=== PATIENT | male | born 2000 | race Caucasian/White ===

== ENCOUNTER 2021-12-15 18:29 | Emergency (ER) | payer OTHER, SELFPAY ==
[2021-12-15 18:44] VITALS: BP 118/73; PULSE 78; RESP 18; TEMP 36.7; O2SAT 100; BMI 29.8
--- NOTE | 2021-12-15 18:55 | CRLHL7_ITS ---
For Patients: As a result of the Century Cures Act, medical imaging exams and procedure reports are released immediately into your electronic medical record. You may view this report before your referring provider. If you have questions, please contact your health care provider. DATE: 12/15/2021. CLINICAL HISTORY: Head trauma. TECHNIQUE: Standard helical CT image acquisition of the brain was performed. COMPARISON: None available. FINDINGS: There is no intracranial hemorrhage. No extra-axial collection, mass effect, or midline shift. Carr-white matter differentiation is preserved. The ventricles are normal in size and morphology for patient age. No displaced calvarial fracture. The orbits are unremarkable. The paranasal sinuses are unremarkable. The mastoid air cells are unremarkable. IMPRESSION: No CT evidence of acute intracranial abnormality or closed-head injury. Please note that all CT scans at this facility use dose modulation, iterative reconstruction, and/or weight-based dosing when appropriate to reduce radiation dose to as low as reasonably achievable. Dictated by Zion Matute MD @ 12/15/2021 7:54:55 PM (Electronically Signed)
--- NOTE | 2021-12-15 18:56 | ED_ITS ---
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 He has an abrasion on the top of his head he be a headache this happened about 3 or 4 hours ago. It was at work as mention. He denies any neck pain or back pain, no focal neurologic deficits in upper lower extremities no new neck back chest abdominal pelvic or upper lower extremity symptoms really describes a head ache and he has had not had nausea he did not lose consciousness. Related Data Home Medications Medication Instructions Recorded Confirmed No Known Home Medications 12/15/21 12/15/21 Allergies Allergy/AdvReac Type Severity Reaction Status Date / Time No Known Drug Allergies Allergy Verified 12/15/21 18:48 Review of Systems Status of ROS: Reports: 6 or more systems reviewed and unremarkable except as noted in History and below [facility] Social History Smoking Status: Never smoker How often do you have a drink containing alcohol: never AUDIT-C Alcohol total score: 0 Non-prescribed substance use: denies use Exam Narrative: Exam Narrative: Objective: Patient has abrasion on the top of his head no palpable stop step- off there is soft tissue swelling in his frontal parietal area anteriorly and over the top of his vertex of his scalp HEENT otherwise unremarkable, pupils react to light, neck is supple for range of motion without tenderness no palpable tenderness to his neck back chest abdomen upper lower extremities are unremarkable. He has am he is ambulatory without difficulty. Const: Vital Signs, click to edit/add: Vital Signs - 24 hr 12/15/21 18:44 Temperature 98.1 F Pulse Rate [Pulse Oximeter] 78 Respiratory Rate 18 Blood Pressure [Ri ght Upper Arm] 118/73 Pulse Oximetry 100 Course Vital Signs Vital signs: Initial Vital Signs Temperature 98.1 F 12/15/21 18:44 Temperature Source Temporal Artery Scan 12/15/21 18:44 Pulse Rate 78 12/15/21 18:44 Respiratory Rate 18 12/15/21 18:44 Blood Pressure 118/73 12/15/21 18:44 Blood Pressure Mean 88 12/15/21 18:44 Blood Pressure Position Sitting 12/15/21 18:44 Pulse Oximetry 100 12/15/21 18:44 Vital Signs Temperature 98.1 F 12/15/21 18:44 Pulse Rate 78 12/15/21 18:44 Respiratory Rate 18 12/15/21 18:44 Blood Pressure 118/73 12/15/21 18:44 Pulse Oximetry 100 12/15/21 18:44 Temperature 98.1 F 12/15/21 18:44 Pulse Rate 78 12/15/21 18:44 Respiratory Rate 18 12/15/21 18:44 Blood Pressure 118/73 12/15/21 18:44 Pulse Oximetry 100 12/15/21 18:44 Medical Decision Making MDM Narrative Medical decision making narrative: Because of his persistent headache and significance of his headache, and the fact that the was thrown up into the roof of the vehicle, would recommend a CT of his head, his neck is fully mobile and nontender. No focal neurologic deficit I think at this point however a CT of his head would be appropriate. This was approved by him in his mother. Addendum: The patient's head CT scan is negative. At this point however would recommend rest for few days, up follow up with regular doctor in 3 days, light activity, Tylenol as needed bacitracin to the abrasion, return problems or concerns sooner than his followup. Would recommend off work for 3 days Discharge Plan Discharge Clinical Impression: Closed head injury Patient Disposition: Home w/ Parent or Adult Condition: Stable Additional Instructions: Off work for 3 days, follow up with regular doctor at that time Tylenol as needed for discomfort, bacitracin to the abrasion on the scalp, return if problems or concerns sooner to the ED Activity Level: Light activity Activity Detail: Off work for 3 days, avoid excessive screen time to give the brain some rest time Discharge Diet: Regular Prescriptions: No Action No Known Home Medications Stand Alone Forms: [employer] Info Instructions
[2021-12-15] MEDS: ACETAMINOPHEN 500 MG TABLET 1000 MG PO (19:43)
[2021-12-15] MEDS: HYDROCODONE/ACETAMIN 7.5-325 TABLET 1 TAB PO (20:14)
[2021-12-15 20:23] VITALS: BP 118/73; PULSE 78; RESP 18; TEMP 36.7
== END 2021-12-15 20:23 | disposition home or self-care (01) ==
PROVIDERS: Emergency Provider Family Medicine
DX: S09.90XA Unspecified injury of head, initial encounter (principal); W22.8XXA Striking against or struck by other objects, initial encounter; Y93.89 Activity, other specified; Y92.69 Other specified industrial and construction area as the place of occurrence of the external cause; Y99.0 Civilian activity done for income or pay
CPT/HCPCS: 70450; 99284; A9270

== ENCOUNTER 2023-11-13 07:21 | Emergency (ER) | payer BC, SELFPAY ==
[2023-11-13 07:55] VITALS: BP 131/72; PULSE 79; RESP 18; TEMP 37.1; O2SAT 99; BMI 34.0
--- NOTE | 2023-11-13 08:28 | ED_ITS ---
HPI - General Adult General Date Seen: 11/13/23 Chief complaint: Ear/Nose/Throat Problem Stated complaint: Unable to see out of left eye Time Seen by Provider: 11/13/23 08:23 History of Present Illness HPI narrative: 22 yo M with a history of strep pharyngitis, presenting to the ER today with concern for visual disturbance in his left eye. Per medical record he was seen in the urgent care 3 days ago on 11/09. At that time he had nasal congestion, cough, sore throat ongoing for 2-3 days. Pain with swallowing. White spots in the back of his throat. He had a strep swab that was negative. Influenza PCR was negative. COVID test not performed based on patient and provided preference. Patient says initially symptoms started with nasal congestion and sore throat. He did not have any fever. Since he was in the urgent care his cause gotten worse. It is nonproductive but sometimes when he coughs it makes his head and face hurt. He did take some Tylenol last night. He woke up this morning with worsening pain in the left side of his face, in particular his left cheek. He also had a nosebleed mostly from his left nostril that was controlled by squeezing at home. No other unusual bleeding or bruising. He has noted some occasional blurriness in the vision of his left eye this morning. His triage note says that he is unable to see out of his left eye, but that was actually not correct. He was never blind and never had a visual field loss. Just that with the left facial pain he had some occasional blurriness. He has not had any redness of his eye. No swelling of his eyelids. No right eye symptoms. He works in the [employer] industry. He tried to go to work this morning but was feeling too unwell so had to call in sick with his boss. He told his boss he would come here to the ER. Related Data Home Medications ?Medication ?Instructions ?Recorded ?Confirmed methylphenidate HCl 18 mg 18 mg PO DAILY 11/10/23 11/10/23 tablet,extended release 24 hr Previous Rx's ?Medication ?Instructions ?Recorded prednisone 20 mg tablet 40 mg (2 x 20 mg) PO QDAY 5 days 11/10/23 #10 tabs amoxicillin 875 mg-potassium 1 tab PO BID #14 tabs 11/13/23 clavulanate 125 mg tablet Allergies Allergy/AdvReac Type Severity Reaction Status Date / Time No Known Drug Allergies Allergy Verified 11/10/23 14:28 [facility] Social History Smoking Status: Never smoker How often do you have a drink containing alcohol: never AUDIT-C Alcohol total score: 0 Non-prescribed substance use: denies use Exam Narrative: Exam Narrative: Constitutional: Appears well-developed and well-nourished. Alert. Conversant. Looks like he does not feel well, but overall Non toxic. HENT: Head: Atraumatic. Nose: External nose normal. He does have puffiness and edema of his nasal mucosa. No active epistaxis. He has a small area of dry blood /scab on the septum inside his left nares which is probably the site of his recent epistaxis. No active bleeding. Frontal sinus is nontender. Left maxillary sinuses tender to percussion. Mouth/Throat: Oral mucosa is clear and moist. no trismus. Pharynx normal. Tonsils symmetric. No tonsillar enlargement, erythema, or exudate. Eyes: No exophthalmos or enophthalmos. Conjunctivae normal. EOM normal. Pupils equal, round, and reactive to light. No scleral icterus. No purulent drainage. Lids normal. Right eye visual acuity 20/25. Left eye visual acuity 20/30 Neck: Normal range of motion. Neck supple. No tracheal deviation present. Cardiovascular: Normal rate, regular rhythm. No gallop. No friction rub. No murmur heard. Pulmonary/Chest: Effort normal. No stridor. No respiratory distress. No wheezes. No rales. No rhonchi . Musculoskeletal: RUE: Normal range of motion. No tenderness. No deformity LUE: Normal range of motion. No tenderness. No deformity RLE: Normal range of motion. No edema. No tenderness. No deformity LLE: Normal range of motion. No edema. No tenderness. No deformity Lymph: No cervical adenopathy. Neurological: Alert and oriented to person, place, and time. Normal strength. CN II-VII intact. No sensory deficit. GCS eye subscore is 4. GCS verbal subscore is 5. GCS motor subscore is 6. Normal coordination Skin: Skin is warm and dry. No rash noted. No pallor. Normal capillary refill. Psychiatric: Normal mood. Normal affect. Const: Vital Signs, click to edit/add: Vital Signs - 24 hr 11/13/23 07:55 Temperature 98.8 F Pulse Rate [Pulse Oximeter] 79 Respiratory Rate 18 Blood Pressure [Ri ght Upper Arm] 131/72 Pulse Oximetry 99 Oxygen Delivery Me thod Room Air Course Vital Signs Vital signs: Initial Vital Signs Temperature 98.8 F 11/13/23 07:55 Temperature Source Temporal Artery Scan 11/13/23 07:55 Pulse Rate 79 11/13/23 07:55 Respiratory Rate 18 11/13/23 07:55 Blood Pressure 131/72 11/13/23 07:55 Blood Pressure Mean 91 11/13/23 07:55 Pulse Oximetry 99 11/13/23 07:55 Oxygen Delivery Method Room Air 11/13/23 07:55 Vital Signs Temperature 98.8 F 11/13/23 07:55 Pulse Rate 79 11/13/23 07:55 Respiratory Rate 18 11/13/23 07:55 Blood Pressure 131/72 11/13/23 07:55 Pulse Oximetry 99 11/13/23 07:55 Oxygen Delivery Method Room Air 11/13/23 07:55 Temperature 98.8 F 11/13/23 07:55 Pulse Rate 79 11/13/23 07:55 Respiratory Rate 18 11/13/23 07:55 Blood Pressure 131/72 11/13/23 07:55 Pulse Oximetry 99 11/13/23 07:55 Oxygen Delivery Method Room Air 11/13/23 07:55 Medications Administered Medications: Discontinued Medications Generic Name Dose Route Start Last Admin Trade Name Tyrese PRN Reason Stop Dose Admin Ibuprofen 600 mg 11/13/23 09:00 11/13/23 09:05 Ibuprofen 200 Mg Tablet PO 11/13/23 09:01 600 mg ONCE ONE Administration Oxymetazoline HCl 1 spray 11/13/23 08:58 11/13/23 09:06 Oxymetazoline 0.05% Nasal Lequire NOSTRIL-B 11/13/23 08:59 1 spray ONCE ONE Administration Medical Decision Making [facility] Narrative Medical decision making narrative: This patient presented with signs and symptoms of probable URI and possible sinusitis. Based on history and exam, I feel the cause of sinusitis is more likely bacterial. Antibiotics are indicated due to acute worsening of symptoms. He had been sick with fairly mild symptoms for 5 days and then worsened overnight into this morning with left facial pain. He reports some intermittent blurriness of his left eye. At this point no signs of orbital cellulitis or other acute intracranial extension. I do not think he needs CT orbits, CT head, or MRI. Evaluation today did not show signs of intracranial complication of sinusitis, facial cellulitis or fungal sinusitis. Patient has normal mental status, no proptosis, periorbital edema, CN palsy. No immunosuprression. In terms of the his epistaxis I think this was probably related to the inflammation of his nasal mucosa. Bleeding was self-limited at home. I do not think he needs a coagulopathy workup. Lungs are clear. No evidence for pneumonia. I do not think chest x-ray is indicated. Consider viral cause of his symptoms as well. This likely started as a viral URI. He was tested for influenza in urgent care 2 days ago so would not retest for that. Discussed with the patient possible COVID testing. He will be outside the window for any treatment with Paxlovid. Therefore will hold off on COVID testing. The patient was given instructions to follow up with primary care in 3-5 days. Instructions for symptomatic care were given. Discharge Plan Discharge Clinical Impression: Sinusitis Patient Disposition: Home, Self-Care Condition: Stable Instructions: Sinusitis (ED) Additional Instructions: As we discussed, continue using Tylenol 1000 mg per dose every 6 hours as needed or ibuprofen 600 mg per dose every 6 hours as needed for your pain. Use the Afrin nasal spray (1 spray into each nostril) twice daily as needed for the next 2 days. Start the antibiotics treat for possible sinus infection. Be careful the antibiotics because they can cause diarrhea. You should take some probiotics to help prevent this. If you have worsening symptoms such as high fever, worsening or severe pain in your face, worsening vision in your eye, or any problems, return to the ER immediately for recheck Prescriptions: New amoxicillin-pot clavulanate 875-125 mg tablet 1 tab PO BID Qty: 14 0RF No Action methylphenidate HCl 18 mg tablet extended release 24hr 18 mg PO DAILY prednisone 20 mg tablet 40 mg PO QDAY 5 Days Qty: 10 0RF Follow Up/Referrals: Provider,Not a Local [Non-Staff] - Stand Alone Forms: [employer] Info Instructions
--- NOTE | 2023-11-13 08:57 | ED.NURSE ---
Vision test performed, left eye is 20/30 +2. Right eye is 20/25+3. MD notified.
[2023-11-13] MEDS: IBUPROFEN 200 MG TABLET 600 MG PO (09:05)
[2023-11-13] MEDS: OXYMETAZOLINE 0.05% NASAL SPRAY 1 SPRAY NOSTRIL-B (09:06)
== END 2023-11-13 09:12 | disposition home or self-care (01) ==
LOC: ED 09:04
PROVIDERS: Emergency Provider Emergency Medicine; PCP Family Medicine
DX: J32.0 Chronic maxillary sinusitis (principal)
CPT/HCPCS: 99282; 99283; A9270

== ENCOUNTER 2023-11-29 19:31 | Outpatient (CLI) | payer BC, SELFPAY | END 2023-11-29 19:32 | disposition home or self-care (01) | PROVIDERS: PCP Family Medicine; Visit Provider Nurse Practitioner | DX: R10.32 Left lower quadrant pain (principal); R07.9 Chest pain, unspecified; R11.0 Nausea | CPT/HCPCS: 80053; 83690 ==

== ENCOUNTER 2024-12-29 07:49 | Day surgery (SDC) | payer BC, SELFPAY ==
[2024-12-29] VITALS (17 sets, daily range): BP systolic 116–138; BP diastolic 66–86; PULSE 59–79; RESP 15–17; TEMP 36.3–36.7; O2SAT 93–97; BMI 36.8
[2024-12-29] MEDS: LACTATED RINGERS 1000 ML 1,000 ML 100 ML IV (08:50)
[2024-12-29] MEDS: SODIUM CHLORIDE 0.9 % (FLUSH) 10 ML SYRINGE IVF (08:59)
[2024-12-29] MEDS: BUPIVACAINE 0.5%/EPINEPHRINE 0.9 MG (30.9 ML) INJECTION (10:30)
[2024-12-29] MEDS: AYR SALINE NASAL GEL 1 APPLIC NOSTRIL-B (10:35)
--- NOTE | 2024-12-29 10:58 | W.PM.ENTPROC ---
Procedure Note Date of procedure: 12/29/24 Procedure: Preop diagnosis nasal obstruction, bilateral inferior turbinate hypertrophy, cryptic tonsillitis, chronic tonsillitis, tonsillar hypertrophy Postoperative diagnosis same Procedure tonsillectomy, submucous partial resection inferior turbinates bilateral Under general endotracheal anesthesia patient was prepped and draped usual fashion. The McIvor mouth gag was inserted the tongue retracted forward. There is no significant adenoid tissue noted. The right tonsil was removed with a combination of needlepoint pop cautery as well as the [employer] bipolar cutting device called is active. Bleeding was controlled with suction cautery. This was repeated for the left tonsil in identical fashion. Meticulous hemostasis was achieved After Re gloving attention was turned to the nose the nose was decongested with cocaine pledgets and the inferior turbinate injected. A stab incision was made in the anterior of the right inferior turbinate a tunnel created with a Culebra dissector. The javed bone was outfractured a conservative anterior submucous resection performed. The Coblation was used for hemostasis and to cauterize intramurally along the inferior 10%. This was repeated on the left side in identical fashion. The patient was extubated the operating room taken recovery in satisfactory condition. Blood loss was less than 10 mL. Surgeon: Imer Magallon MD
--- NOTE | 2024-12-29 11:02 | P.ANES_ITS ---
Anesthesia Charges Start Date/Time Anesthesia Start Date: 12/29/24 Anesthesia Start Time: 10:13 Stop Date/Time Anesthesia Stop Date: 12/29/24 Anesthesia Stop Time: 11:03 Coding CPT Codes CPT Codes: ANESTH PROCEDURE ON MOUTH - 18468 ([id number]) P3 - PATIENT W/SEVERE SYS DISEASE, QK - REHAB TRAINER 2-4 CNCRNT ANES PROC, QX - SHELL TRIM OPERATOR SVC W/ MD MED DIRECTION
--- NOTE | 2024-12-29 11:02 | W.ANESCHARGE ---
Anesthesia Charges Start Date/Time Anesthesia Start Date: 12/29/24 Anesthesia Start Time: 10:13 Stop Date/Time Anesthesia Stop Date: 12/29/24 Anesthesia Stop Time: 11:03 Coding CPT Codes CPT Codes: ANESTH PROCEDURE ON MOUTH - 22999 ([id number]) P3 - PATIENT W/SEVERE SYS DISEASE, QK - ACCOUNTING SOFTWARE SPECIALIST 2-4 CNCRNT ANES PROC, QX - TAX ACCOUNTING MANAGER SVC W/ MD MED DIRECTION
--- NOTE | 2024-12-29 11:43 | P.ANES_ITS ---
Anesthesia Charges Start Date/Time Anesthesia Start Date: 12/29/24 Anesthesia Start Time: 10:13 Stop Date/Time Anesthesia Stop Date: 12/29/24 Anesthesia Stop Time: 11:03 Coding CPT Codes CPT Codes: ANESTH PROCEDURE ON MOUTH - 57248 ([id number]) QK - TOWER ERECTOR 2-4 CNCRNT ANES PROC, QX - MATERIAL HANDLER FLOORPERSON SVC W/ MD MED DIRECTION, P3 - PATIENT W/SEVERE SYS DISEASE
--- NOTE | 2024-12-29 11:43 | W.ANESCHARGE ---
Anesthesia Charges Start Date/Time Anesthesia Start Date: 12/29/24 Anesthesia Start Time: 10:13 Stop Date/Time Anesthesia Stop Date: 12/29/24 Anesthesia Stop Time: 11:03 Coding CPT Codes CPT Codes: ANESTH PROCEDURE ON MOUTH - 15850 ([id number]) QK - REGRIND MILL OPERATOR 2-4 CNCRNT ANES PROC, QX - PINSETTER MECHANIC AUTOMATIC SVC W/ MD MED DIRECTION, P3 - PATIENT W/SEVERE SYS DISEASE
[2024-12-29] MEDS: OXYCODONE 1 MG/ML ORAL SOLN 5 MG PO (13:58)
[2024-12-29] MEDS: IBUPROFEN 100 MG/5 ML SUSP 200 MG PO (13:58)
== END 2024-12-29 14:00 | disposition home or self-care (01) ==
LOC: OR 07:50
PROVIDERS: PCP Family Medicine; Visit Provider Otolaryngology
PROC: (CPT 42826; principal; 2024-12-29 09:45)
DX: J35.01 Chronic tonsillitis (principal); J34.3 Hypertrophy of nasal turbinates; J34.89 Other specified disorders of nose and nasal sinuses
CPT/HCPCS: 42826; 30140; 00170; A9270; J0330; J1100; J2250; J2405; J2704; J3010; J7120

== ENCOUNTER 2025-01-05 03:22 | Day surgery (SDC) | payer BC, SELFPAY ==
[2025-01-05] VITALS (24 sets, daily range): BP systolic 115–143; BP diastolic 64–92; PULSE 70–129; RESP 14–20; TEMP 35.7–37.1; O2SAT 94–99; BMI 34.7
--- OUTSIDE RECORDS SUMMARY | 2025-01-05 03:25 | XMS_ITS | Patient Health Record ---
Author Organization [facility] Address [address] [facility] [address] [place] [address] Care Team Providers Care Arcgis Developer Name Role Phone Renee JOHNSTON, Roseline Unavailable Reason For Referral No Information Social History Social History PSA Social History Social Info Question Answer Notes SMOKING STATUS 13Y AND OLDER Are you a: Non-Smoker Education: Is the Child in School? Yes What Grade? 7th Additional Details Category Social Info Options Details PSA Social History Child Lives At: Home Child Lives With: Mother,Other Day Care No Siblings 3 Alcohol/Drugs? No Activities / Interests? baseball , running, biking, video games, reading, youth group, outdoors Others Residing In Home: All Mem bers: Mom, Step Dad, Brother, Sister, Step Sister Employment No Recent Travel no Plan Of Treatment No Information Insurance Providers Payer Name Payer Address Payer Phone Subscriber Number Group Number Insured Name Patient Relationship to Insured Coverage Start Date Coverage End Date [facility] [address] [address] [place] [phone] [id number] Gilma Larsen Child - Insured has Financial Responsibility 5
--- OUTSIDE RECORDS SUMMARY | 2025-01-05 03:25 | XMS_ITS | Clinical Summary ---
Author Organization [facility] Address [address] [place] [address] Care Team Providers Care Culture Room Worker Name Role Phone Duncan Kirby PhD, LP Unavailable [phone] Yaquelin Logan DO Primary Care Provider [phone] Allergies No known active allergies Medications CPAPIndications:OS A (obstructive sleep apnea) CPAP machine for home use at pressure 4-15cm/H2O, nasal pillow mask x1/3month with nasal pillow cushion x2/mo 1 Each 6 01/16/20 22 Active promethazine (PHENERGAN) 25 mg tabletIndications: Motion sickness, initial encounter Take 1 Tablet (25 mg) by mouth every 6 hours if needed for Nausea/Vomiti ng. Not to be used with Zofran 20 Tablet 04/13/19 25 Active ondansetron (ZOFRAN ODT) 4 mg disintegrating tabletIndications: Motion sickness, initial encounter Place 1 Tablet (4 mg) on the tongue every 8 hours if needed for Nausea/Vomiti ng. Not to be used with Phenergan 20 Tablet 12/26/19 25 Active ondansetron (ZOFRAN ODT) 4 mg disintegrating tabletIndications: Motion sickness, initial encounter Place 1 Tablet (4 mg) on the tongue every 8 hours if needed for Nausea/Vomiti ng. 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 04/25/2012 Ureteral reflux 03/15/2012 Overview (03/15/2012): 2004 had bilateral ureteral reimplantation for grade 4 reflux on left Vesicoureteral reflux 03/15/2012 Overview (09/13/2023): 2003 had bilateral ureteral reimplantation for grade 4 reflux on left Encounters Date Type Department Care Team Description 12/30/2024 Lab Requisition [facility] [phone] Imer Magallon MD 12/25/2024 3:30 PM SAGGER MAKER Office Visit [facility] [address] [facility] [place] [address] Minda Rankin PA Preoperative Exam (DOS 12/29/24) 12/25/2024 Travel from Last 3 Months Immunizations Immunization Administration Dates Next Due COVID-19 vaccine (Nimbus Discovery-Bio NTech 30mcg/0.3mL) MILDRED ROSALES 02/05/2021,07/02/2020,06/11/2020 DTP 06/08/2002,05/09/2002,01/17/2002 DTaP 06/14/2007,03/15/2003 HIB-HepB (Comvax) 03/15/2003,05/09/2002,01/18/20 02 HPV 9 (Gardasil 9) 11/13/2014 Hepatitis A (Peds) 07/03/2014,11/14/2013 Human Papilloma Virus Vaccine 07/03/2014, 014 Inactivated Polio Vaccine 06/14/2007,06/2003,05/09/2002,01/17 Influenza A (H1N1), Inactiva dariana (Age >=3 Years) 03/12/2009 Influenza, IIV3 (Age 6-35 mos) 12/24/2003 Influenza, IIV3 (Age >=3 years) 02/23/19 14,02/19/2012,01/06/2007,12/23 Influenza, IIV4 11/09/2019, 7,11/13/2014,11/14 Influenza, Inactivated IIV3 (Age 65+ Years) Preserv Free 02/23/2013,02/19/2012,01/06/2007,12/23 MENINGOCOCCAL VACCINE 2 VIAL 2MO-55YO (MENVEO) 06/27/2018,11/14/2013 MMR 06/14/2007,12/05/2002 Pneumococcal conj 7-Valent (Prevnar 7) 0 03/15/2003,06/08/2002,05/09/2002,01/17 Tdap 11/18/2022,11/14/2013 Varicella Vaccine 06/14/2007,12/05/2002 Family History Medical History Relation Name Comments Good Health Brother Good Health Father Good Health Mother Relation Name Status Comments Brother Father Mother Social History Tobacco Use Types Packs/Day Years Used Date Smoking Tobacco: Never Smokeless Tobacco: Never Tobacco Cessation:Counseling Given: No Comments:no exposure Alcohol Use Standard Drinks/Week Comments No 0 (1 standard drink = 0.6 oz pur e alcohol) PHQ-2 Answer Date Recorded PHQ-2 TOTAL SCORE 0 09/24/2023 Social Connections Answer Date Recorded Do you often feel lonely or isolated from those around you? 0 12/25/2024 Alcohol Use Answer Date Recorded How often do you have a drink containing alcohol ? 0 12/25/2024 How many drinks containing a lcohol do you have on a typical day when you are drinking? 0 12/25/2024 How often do you have five or more drinks on one occasion? 0 12/25/2024 Financial Resource Strain Answer Date R ecorded Difficulty of Paying Living Expenses 3 12/25/2024 Difficulty of Paying Living Expenses Not on file 12/25/2024 Food Insecurity Answer Date Recorded Do you worry your food will run out before you are able to buy more? 1 12/25/2024 Transportation Needs Answer Date Record ed Does lack of transportation keep you from medica l appointments? 1 12/25/2024 Does lack of transportation keep you from work, meetings or getting things that you need? 1 12/25/2024 Housing Stability Answer Date Recorded What is your housing situation today? 1 12/25/2024 Utilities Answer Date Recorded Do you have trouble paying f or utilities (for example, heat, electricity, water, phone)? 1 12/25/2024 Sex and Gender Information Value Date Recorded Sex Assigned at Not on file Legal Sex Male 5:23 AM SAGGER MAKER Gender Identity Not on file Sexual Orientation Not on file Obstetrics History Last Filed Vital Signs Vital Sign Reading Time Taken Comments Blood Pressure 118/66 12/25/2024 3:30 PM SAGGER MAKER Pulse 92 12/25/2024 3:30 PM SAGGER MAKER Temperature 37.1 C (98.7 F) 12/25/2024 3:30 PM SAGGER MAKER Respiratory Rate 14 04/12/2024 2:25 PM SAGGER MAKER Oxygen Saturation 98% 12/25/2024 3:3 0 PM SAGGER MAKER Inhaled Oxygen Concentration - - Weight 123.7 kg (272 lb 12. 8 oz) 12/25/2024 3:30 PM SAGGER MAKER with boots Height 182.9 cm (6') 12/25/2024 3:30 PM SAGGER MAKER Body Mass Index 37 12/25/2024 3:30 PM SAGGER MAKER Plan of Treatment Health Maintenance Due Date Last Done Comments HIV for age 15-65 2016 Hepatitis C screening for age 18-79 12/03/2019 Depression screening for age 12+ 09/23/2024 09/24/2023, 11/19/2021, 08/10/2019, Additional history exists Influenza Vaccine (#1) 2024 , 12/07/2016, 11/13/2014, Additional history exists BMI (ht and wt on same day) for age 18+ 12/25/2025 12/25/2024, 10/15/2023, 09/24/2023, Additional history exists Tetanus booster 11/18/2032 11/18/2022, 11/14/2013 RSV vaccine for adults or (1 - 1-dose 75+ series) 2076 Hepatitis B series for 19+ Completed 03/15, 05/09/2002, 01/17/2002 Pneumococcal series for age 6-49 Aged Out 03/15/2003, 06/08/2002, 05/09/2002, Additional history exists No longer eligible based on patient's age to complete this topic HPV series for age 9-45 Completed 11/14/19 15, 07/03/2014, 11/14/2013 Procedures Procedure Name Priority Date/Time Associated Diagnosis Comments LAB TRACKING EVENT Routine 12/29/2024 10 :39 AM SAGGER MAKER PATH TISSUE EXAM Routine 12/29/2024 10:3 9 AM SAGGER MAKER from Last 3 Months Results * LAB TRACKING EVENT (12/29/2024 10:39 AM SAGGER MAKER) Other (Other) Client Collect / Unknown 12/29/2024 10:39 AM SAGGER MAKER 12/30/2024 1:35 PM SAGGER MAKER Imer Magallon MD LAB BILL ONLY Final Result [facility] [address] [place] [address], * PATH TISSUE EXAM (12/29/2024 10:39 AM SAGGER MAKER) Case Report Pathology Report Case: [id number] Authorizing Provider: Imer Magallon, Collected: 12/29/2024 1039 Ordering Location: [facility] Received: 01/01/2025 1119 Pathologist: Krysten Poe MD Specimens: A) - Right Tonsil B) - Left Tonsil 01/03/2025 12:25 PM SAGGER [facility]KER [facility] Final Diagnosis A) TONSIL, RIGHT, TONSILLECTOMY: 1. Reactive lymphoid hyperplasia 2. 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 Negative for neoplasm on these sections B) TONSIL, LEFT, TONSILLECTOMY: 1. Reactive lymphoid hyperplasia 2. 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 Negative for neoplasm on these sections 01/03/2025 12:25 PM SAGGER MAKER [facility] at [address]25 SAGGER MAKER Clinical Information REPEAT INFECTION WITH THROAT PAIN 01/03/2025 12:25 PM SAGGER MAKER [facility] Gross Description A) Received in formalin labeled with the patient's name and right tonsil, is a 3.7 x 2.8 x 1.5 cm pink-craig ovoid palatine tonsil. It is partially surfaced by glistening cribriform mucosa. The cut surfaces are pink and rubbery with no masses or lesions identified. A administrative representative section is submitted in one cassette. B) Received in formalin labeled with the patient's name and left tonsil, is a cyst 3.5 x 2.5 x 1.5 cm pink-craig ovoid palatine tonsil. It is partially surfaced by glistening cribriform mucosa. The cut surfaces are pink and rubbery with no masses or lesions identified. A administrative representative section is submitted in one cassette. SAMIRA 01/01/2025 01/03/2025 12:25 PM SAGGER MAKER [facility] Microscopic Description The final diagnosis is based on microscopic examination of appropriate sections of all specimens. 01/03/2025 12:25 PM SAGGER MAKER [facility] Additional Information Interpreted at [facility] - [address], [place] [address] 01/03/2025 12:25 PM SAGGER MAKER [facility] Other (Right Tonsil) 12/29/2024 10:39 AM SAGGER MAKER 01/01/2025 11:19 AM SAGGER MAKER Specimen (specimen) (Left Tonsil) 12/29/2024 10:44 AM SAGGER MAKER 01/01/2025 11:19 AM SAGGER MAKER Imer Magallon MD PATHOLOGY/CYTOLOGY nal Result [facility] [address] [place] [address], from Last [id number] [phone] [employer] [place] [id number] [phone] [place] [employer] Care Teams Culture Room Worker Relationship Specialty Start Date End Date Yaquelin Logan DO [address] [place] [address] PCP - General Family Practice 06/05/20 Duncan Kirby, PhD, [facility] [place] [address] Psychologist Psychology 03/08/12
[2025-01-05 03:42] LABS: Hematocrit* 48.8 % (37.0-53.0); Hemoglobin* 16.4 gm/dL (13.5-17.5); Immature Granulocytes Pct Auto 0.2 %; Mean Corpuscular HGB Conc 34 gm/dL (32-36); Mean Corpuscular Hemoglobin 29 pg (26-34); Mean Corpuscular Volume 85 fL (80-100); RDW Coefficient of Variation % 11.8 % (11.5-15.5); Red Blood Count* 5.74 m/uL (4.30-5.90); White Blood Count* 12.57 K/uL (4.50-11.00)
--- NOTE | 2025-01-05 03:43 | ED_ITS ---
HPI - General Adult General Date Seen: 01/05/25 Chief complaint: Ear/Nose/Throat Problem Stated complaint: tonsils bleeding Time Seen by Provider: 01/05/25 03:23 Source: patient, family, RN notes reviewed and old records reviewed Mode of arrival: ambulatory Limitations: no limitations History of Present Illness HPI narrative: Patient is a 24-year-old gentleman who 7 days ago had his tonsils removed at our institution, presents here with acute bleeding that started approximately 2:33 a.m. this night. The little bit of bleeding before that, will come up from sleep. They called his ENT surgeon, who was in route here. He lost approximately 100 mL of blood. What I can see in the bucket. Feels a little sweaty, and faint. No history of any cardiac or pulmonary problems and last ate approximately at 6:30 a.m.. No chronic medications no known allergies, no history of bleeding dyscrasias. Accompanied by his parents. Vomited twice in car. Related Data Previous Rx's ?Medication ?Instructions ?Recorded ondansetron 4 mg disintegrating 4 mg PO Q8H #10 tabs 1 02/29/24 tablet oxycodone 5 mg/5 mL oral solution 5 mg (5 mL) PO Q4-6H PRN pain #200 01/03/25 mL Allergies Allergy/AdvReac Type Severity Reaction Status Date / Time No Known Drug Allergies Allergy Verified 12/29/24 08:53 Review of Systems Status of ROS: Reports: 6 or more systems reviewed and unremarkable except as noted in History and below [facility] Medical History (Updated 01/05/25 @ 03:47 by Jose Perkins MD) JOANIE (obstructive sleep apnea) ?G47.33 - Obstructive sleep apnea (adult) (pediatric) (ICD-10) ADD (attention deficit disorder) without hyperactivity ?F98.8 - Other specified behavioral and emotional disorders with onset usually occurring in childhood and adolescence (ICD-10) Ureteral reflux ?N13.70 - Vesicoureteral-reflux, unspecified (ICD-10) Surgical History (Updated 12/28/24 @ 09:33 by Edin Love RN) S/P ureteral reimplantation ?Z98.890 - Other specified postprocedural states (ICD-10) Social History Smoking Status: Never smoker How often do you have a drink containing alcohol: never AUDIT-C Alcohol total score: 0 Non-prescribed substance use: denies use Caffeine: Yes Exam Narrative: Exam Narrative: On examination in room 5, he is spitting up blood. Appears to be slightly dark. Pupils equal round reactive to light nontoxic, answer my questions appropriately TMs are normal no petechiae, oropharynx reveals low blood from the right tonsillar pillar. With small clot formed there. No nasal blood. Neck is supple no lymphadenopathy chest is clear bilaterally, heart sounds are normal. Abdomen soft. Const: Vital Signs, click to edit/add: Vital Signs - 24 hr 01/05/25 03:24 01/05/25 03:49 01/05/25 03:50 Temperature 96.2 F L Pulse Rate [Left P ulse Oximeter] 129 H 114 H Respiratory Rate 20 20 Blood Pressure [Ri ght Upper Arm] 140/84 H 140/92 H Pulse Oximetry 99 96 96 Oxygen Delivery Me thod Room Air 01/05/25 04:01 Temperature Pulse Rate [Left P ulse Oximeter] 110 H Respiratory Rate 20 Blood Pressure [Ri ght Upper Arm] 127/83 Pulse Oximetry 96 Oxygen Delivery Me thod Room Air Course Reevaluation(s) Time of Reevaluation #1: 03:47 Reevaluation #1: Bloods maybe a little bit last side of his spitting up out of his mouth, he has just finished is TXA, we have fluids infusing. ASA 1 for surgery. Time of Reevaluation #2: 04:10 Reevaluation #2: in to see patient Vital Signs Vital signs: Initial Vital Signs Temperature 96.2 F L 01/05/25 03:24 Temperature Source Temporal Artery Scan 01/05/25 03:24 Pulse Rate 129 H 01/05/25 03:24 Pulse Rhythm Regular 01/05/25 03:24 Respiratory Rate 20 01/05/25 03:24 Blood Pressure 140/84 H 01/05/25 03:24 Blood Pressure Mean 102 01/05/25 03:24 Blood Pressure Position Sitting 01/05/25 03:24 Pulse Oximetry 99 01/05/25 03:24 Oxygen Delivery Method Room Air 01/05/25 03:24 Vital Signs Temperature 96.2 F L 01/05/25 03:24 Pulse Rate 129 H 01/05/25 03:24 Respiratory Rate 20 01/05/25 03:24 Blood Pressure 140/84 H 01/05/25 03:24 Pulse Oximetry 99 01/05/25 03:24 Oxygen Delivery Method Room Air 01/05/25 03:24 Temperature 96.2 F L 01/05/25 03:24 Pulse Rate 110 H 01/05/25 04:01 Respiratory Rate 20 01/05/25 04:01 Blood Pressure 127/83 01/05/25 04:01 Pulse Oximetry 96 01/05/25 04:01 Oxygen Delivery Method Room Air 01/05/25 04:01 Medications Administered Medications: Generic Name Dose Route Start Last Admin Trade Name Freq PRN Reason Stop Dose Admin Sodium Chloride 1,000 mls @ 1,000 mls/hr 01/05/25 03:30 01/05/25 03:55 0.9 % Sodium Chloride 1000 Ml IV 01/05/25 04:29 1,000 mls/hr .Q1H ABIMBOLA Administration Discontinued Medications Generic Name Dose Route Start Last Admin Trade Name Freq PRN Reason Stop Dose Admin Ondansetron HCl 4 mg 01/05/25 03:42 01/05/25 03:54 Ondansetron 2 Mg/Ml Inj IVP 01/05/25 03:43 4 mg ONCE ONE Administration Tranexamic Acid 1,000 mg 01/05/25 03:28 01/05/25 03:54 Tranexamic Acid 100 Mg/Ml Inj TOPICAL 01/05/25 03:29 1,000 mg ONCE ONE Administration Tranexamic Acid 1,000 mg 01/05/25 03:28 01/05/25 04:01 Tranexamic Acid 100 Mg/Ml Inj TOPICAL 01/05/25 03:29 1,000 mg ONCE ONE Administration Medical Decision Making MDM Narrative Medical decision making narrative: This fits with the post tonsillar bleed, his ENT surgeon is in road, the [place] was been called. We will give him some nebulized TXA. I have also given him fluids and started a 2nd IV, labs have been ordered. His condition appears stable but guarded. Medical Records Medical records reviewed: Yes I reviewed the patient's medical records Lab Data Labs: Lab Results 01/05/25 Range/Units 02:35 WBC 12.57 H (4.50-11.00) K/uL RBC 5.74 (4.30-5.90) m/uL Hgb 16.4 (13.5-17.5) gm/dL Hct 48.8 (37.0-53.0) % MCV 85 (80-100) fL MCH 29 (26-34) pg MCHC 34 (32-36) gm/dL RDW Coeff of Franci 11.8 (11.5-15.5) % Plt Count 351 (140-440) K/uL Neut % (Auto) 63.9 (42.0-72.0) % Lymph % (Auto) 25.4 (20-44) % Kaufman % (Auto) 8.7 (0.0-11.0) % Eos % (Auto) 1.6 (0.0-7.0) % Baso % (Auto) 0.2 (0.0-3.0) % Neut # (Auto) 8.00 H (1.7-7.0) K/uL Lymph # (Auto) 3.20 H (0.90-2.90) K/uL Kaufman # (Auto) 1.10 H (0.00-0.90) K/UL Eos # (Auto) 0.20 (0.00-0.50) K/uL Baso # (Auto) 0.00 (0.00-0.30) K/uL Abs Immat Gran (auto) 0.00 (0.00-0.30) K/uL Imm/Tot Granulo (auto) 0.2 % INR 1.04 (0.91-1.10) APTT 28 (23-33) Seconds Sodium 139 (135-149) mmol/L Potassium 4.3 (3.6-5.1) mmol/L Chloride 101 (96-114) mmol/L Carbon Dioxide 28 (20-32) mmol/L Anion Gap 10 (7-15) mEq/L BUN 18 (5-24) mg/dL Creatinine 1.2 (0.5-1.5) mg/dL Estimated Creat Clear 108.20 Estimated GFR 87 ml/min Glucose 105 (60-115) mg/dL Calcium 9.8 (8.4-10.6) mg/dL Discharge Plan Discharge Clinical Impression: Postoperative haemorrhage of tonsil Patient Disposition: XFER to OR Condition: Guarded Follow Up/Referrals: Tanisha Logan DO [Primary Care Provider, Family Practice]
[2025-01-05 03:45] LABS: Immature Granulocytes Abs Auto 0.00 K/uL (0.00-0.30); Lymphocytes Absolute Auto 3.20 K/uL (0.90-2.90); Slide Review Reflex No
[2025-01-05 03:52] LABS: Chloride* 101 mmol/L (96-114)
[2025-01-05 03:53] LABS: Potassium* 4.3 mmol/L (3.6-5.1); Sodium* 139 mmol/L (135-149)
[2025-01-05] MEDS: ONDANSETRON 2 MG/ML inj 4 MG IVP (03:54)
[2025-01-05] MEDS: TRANEXAMIC ACID 100 MG/ML INJ 1000 MG TOPICAL ×2 (03:54→04:01)
[2025-01-05 03:56] LABS: Anion Gap 10 mEq/L (7-15); Blood Urea Nitrogen* 18 mg/dL (5-24); Calcium* 9.8 mg/dL (8.4-10.6); Carbon Dioxide* 28 mmol/L (20-32); Creatinine* 1.2 mg/dL (0.5-1.5); Est. Creatinine Clearance* 108.20; Estimated Glomerular Filt Rate 87 ml/min; Glucose* 105 mg/dL (60-115); INR 1.04 (0.91-1.10); Prothrombin Time 14.5 Seconds
--- NOTE | 2025-01-05 04:23 | P.ENTCN_ITS ---
HPI- ENT Consult Date of Consult Date Seen: 01/05/25 Consult date: 01/05/25 Requesting Physician: Other Primary Care Provider: Tanisha Logan, Consult Narrative Reason for consult: Post tonsillectomy bleeding Narrative: Chao Larsen is a 24 year old male who underwent tonsillectomy a week ago. Developed brisk bleeding. Did not stop with cold water rinsing. Came to ER. Was treated with TXA and no current active bleeding with there is is a clot in the right tonsillar fossa. [facility] Medical History (Updated 01/05/25 @ 03:47 by Jose Perkins MD) JOANIE (obstructive sleep apnea) ?G47.33 - Obstructive sleep apnea (adult) (pediatric) (ICD-10) ADD (attention deficit disorder) without hyperactivity ?F98.8 - Other specified behavioral and emotional disorders with onset usually occurring in childhood and adolescence (ICD-10) Ureteral reflux ?N13.70 - Vesicoureteral-reflux, unspecified (ICD-10) Surgical History (Updated 12/28/24 @ 09:33 by Edin Love RN) S/P ureteral reimplantation ?Z98.890 - Other specified postprocedural states (ICD-10) Social History Smoking Status: Never smoker How often do you have a drink containing alcohol: never AUDIT-C Alcohol total score: 0 Non-prescribed substance use: denies use Caffeine: Yes Meds Home Medications and Allergies Home Medications ?Medication ?Instructions ?Recorded ?Confirmed ?Type ondansetron 4 mg disintegrating 4 mg PO Q8H #10 tabs 1 02/29/24 Rx tablet oxycodone 5 mg/5 mL oral solution 5 mg (5 mL) PO Q4-6H PRN pain #200 01/03/25 Rx mL Allergies Allergy/AdvReac Type Severity Reaction Status Date / Time No Known Drug Allergies Allergy Verified 12/29/24 08:53 Exam Narrative: Exam Narrative: General skin neuro respiratory gait peripheral vascular vocal quality skin of head neck are all negative except clot right tonsil fossa Const: Vital Signs, click to edit/add: Vital Signs - 24 hr 01/05/25 03:24 01/05/25 03:49 01/05/25 03:50 Temperature 96.2 F L Pulse Rate [Left P ulse Oximeter] 129 H 114 H Respiratory Rate 20 20 Blood Pressure [Ri ght Upper Arm] 140/84 H 140/92 H Pulse Oximetry 99 96 96 Oxygen Delivery Me thod Room Air 01/05/25 04:01 Temperature Pulse Rate [Left P ulse Oximeter] 110 H Respiratory Rate 20 Blood Pressure [Ri ght Upper Arm] 127/83 Pulse Oximetry 96 Oxygen Delivery Me thod Room Air ENT-CN: Result Labs Labs: Short CBC 01/05/25 Range/Units 02:35 WBC 12.57 H (4.50-11.00) K/uL Hgb 16.4 (13.5-17.5) gm/dL Hct 48.8 (37.0-53.0) % Plt Count 351 (140-440) K/uL BMP 01/05/25 02:35 Sodium 139 Potassium 4.3 Chloride 101 Carbon Dioxide 28 BUN 18 Creatinine 1.2 Glucose 105 Calcium 9.8 Assessment and Plan Assessment and plan (1) Postoperative haemorrhage of tonsil: Status: Acute Plan Right post tonsillectomy bleeding. Discussed options of observation versus operating room cautery control. Risks of recurrence anesthesia bleeding aspiration etc. all reviewed they understand wish to proceed will will go as soon as operating room crew is ready.
[2025-01-05] MEDS: LACTATED RINGERS 1000 ML 1,000 ML 35 ML IV (04:25)
--- NOTE | 2025-01-05 04:46 | W.PM.ENTPROC ---
Procedure Note Date of procedure: 01/05/25 Procedure: Preop diagnosis right post tonsillectomy bleeding Postop same Procedure cautery control right post tonsillectomy bleed After informed consent was obtained the patient was brought the operating room. General endotracheal anesthesia was induced he was prepped and draped in usual fashion. The McIvor mouth gag was inserted the tongue retracted forward. A large clot was removed from the right tonsillar fossa which resulted in moderate bleeding from the inferior right tonsil pole. This was easily controlled with suction cautery. The left tonsil bed was abraded but no bleeding sites were noted. An NG tube set on low suction was placed with suction only activated after the tube was in place. Stomach was emptied of gastric contents which was minimal. Patient was x-rayed in the operating taken recovery in satisfactory condition. Blood loss during procedure was 0 mL. Surgeon: Imer Magallon MD
--- NOTE | 2025-01-05 05:12 | P.ANES_ITS ---
Anesthesia Charges Start Date/Time Anesthesia Start Date: 01/05/25 Anesthesia Start Time: 04:29 Stop Date/Time Anesthesia Stop Date: 01/05/25 Anesthesia Stop Time: 05:02 Summary Emergency: FINANCE ADVISOR Coding CPT Codes CPT Codes: ANESTH PROCEDURE ON MOUTH - 74200 ([id number]) P2 - PATIENT W/MILD SYST DISEASE, QZ - FINANCE ADVISOR SVC W/O FLIGHT CONTROL SPECIALIST BY Additional Codes: Summary - Emergency: FINANCE ADVISOR ([id number])
--- NOTE | 2025-01-05 05:12 | W.ANESCHARGE ---
Anesthesia Charges Start Date/Time Anesthesia Start Date: 01/05/25 Anesthesia Start Time: 04:29 Stop Date/Time Anesthesia Stop Date: 01/05/25 Anesthesia Stop Time: 05:02 Summary Emergency: ASSOCIATE PROFESSOR OF ART HISTORY Coding CPT Codes CPT Codes: ANESTH PROCEDURE ON MOUTH - 60495 ([id number]) P2 - PATIENT W/MILD SYST DISEASE, QZ - ASSOCIATE PROFESSOR OF ART HISTORY SVC W/O PRINCIPAL CLERK BY Additional Codes: Summary - Emergency: ASSOCIATE PROFESSOR OF ART HISTORY ([id number])
--- NOTE | 2025-01-05 05:16 | SUR.PHASEI ---
Patient arrived to PACU awake and calm. Breathing regularly without difficulty.
--- NOTE | 2025-01-05 05:32 | SUR.PHASEI ---
Patient stated he was having a little more pain when asked. He stated a 6. Medication given for pain.
--- NOTE | 2025-01-05 05:50 | SUR.PHASEI ---
Patient meets discharge criteria from PACU.
[2025-01-05] MEDS: ACETAMINOPHEN 160 MG/5 ML CUP 320 MG PO (06:27)
[2025-01-05] MEDS: IBUPROFEN 100 MG/5 ML SUSP 200 MG PO (07:57)
--- NOTE | 2025-01-05 10:11 | PC.NURSE ---
Discharge: Patient pleasant and cooperative. Patient vitally stable, lungs clear, BS WNL, IVs removed, catheter intact. Patient rates throat pain 5/10, ibuprofen and oxy given once. Patient tolerating fluids by mouth. Patient asked for extension for work leave that was set for January 15. Patient was advised to contact Andie the or wednesday before he is to return to work if he notices he is still bleeding as this procedure should not have to extend his leave. Patient signed belongings sheet and discharge form with no further questions. Patient left the floor to home by foot at 1003.
== END 2025-01-05 10:03 | disposition home or self-care (01) ==
LOC: ED 04:17 → SS 04:19 → MEDSURG 06:09
PROVIDERS: Emergency Provider Family Medicine; PCP Family Medicine; Visit Provider Otolaryngology
PROC: (CPT 42960; principal; 2025-01-05 04:30)
DX: J95.830 Postprocedural hemorrhage of a respiratory system organ or structure following a respiratory system procedure (principal); G47.33 Obstructive sleep apnea (adult) (pediatric)
CPT/HCPCS: 42962; 00170; 36415; 80048; 85025; 85610; 85730; 94761; 99140; 99284; 99285; A9270; J0330; J1100; J2250; J2371; J2405; J2704; J3010; J7030; J7120